=== PATIENT | female | born 1995 | race Caucasian/White ===

== ENCOUNTER 2018-10-02 12:35 | Emergency (ER) | payer BC ==
--- NOTE | 2018-10-02 13:33 | EDM.PDOC ---
ED HPI GENERAL MEDICAL PROBLEM - General Source of Information: Reports: Patient History Limitations: Reports: No Limitations <Luigi Snider - Last Filed: 10/02/18 16:48> - History of Present Illness Onset: Today, Sudden Onset Date: 10/02/18 Onset Time: 12:00 Duration: Minutes: Location: Reports: Other (vaginal bleeding) Severity: Mild Improves with: Reports: None Worsens with: Reports: None Associated Symptoms: Reports: No Other Symptoms. Denies: Fever/Chills, Nausea/ Vomiting, Weakness <Sarah Tsai - Last Filed: 10/02/18 16:58> - General Chief Complaint: ROCK [place]ON Problem Stated Complaint: POSS MISCARRIAGE Time Seen by Provider: 10/02/18 12:54 - History of Present Illness INITIAL COMMENTS - FREE TEXT/NARRATIVE: 23 y/o female presents to ER with cc vaginal bleeding and . She is . She reports about 2 hour [employer] she noticed "stringy bloody drainage from her vagina. She denies any dysuria, back pain, fever or cramping. She reports she has not had any bleeding with her other . Her LMP was 08/26/18. Her OB is Dr. Swanson. (Sarah Tsai) - Related Data Allergies Allergy/AdvReac Type Severity Reaction Status Date / Time azithromycin Allergy Nausea Verified 01/20/16 14:35 codeine Allergy Vomiting Verified 01/20/16 14:35 promethazine HCl Allergy Other Verified 01/20/16 14:35 [From Phenergan] Home Meds: Home Meds . 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 Psychiatric History: Reports: Depression Other Psychiatric History: port depression after having daughter. - Past Surgical History HEENT Surgical History: Reports: Tonsillectomy GI Surgical History: Reports: Cholecystectomy <Luigi Snider - Last Filed: 10/02/18 16:48> Social & Family History - Family History Family Medical History: Noncontributory Respiratory: Reports: Asthma Other Respiratory Family Hisory: mom has asthma. Musculoskeletal: Reports: Arthritis Other Musculoskeletal Family History: grandmother has arthritis Psychiatric: Reports: Anxiety, Bipolar, Depression Other Psychiatric Family History: mother and father Endocrine/Metabolic: Reports: Diabetes, type II Other Endocrine/Metabolic Family History: mother - Tobacco Use Smoking Status *Q: Never Smoker - Caffeine Use Caffeine Use: Reports: Coffee, Energy Drinks, Soda - Recreational Drug Use Recreational Drug Use: No - Living Situation & Occupation Living situation: Reports: Single <Luigi Snider - Last Filed: 10/02/18 16:48> ED ROS GENERAL - Review of Systems Review Of Systems: See Below Constitutional: Denies: Fever, Chills HEENT: Reports: No Symptoms Respiratory: Reports: No Symptoms, Cough Endocrine: Reports: No Symptoms GI/Abdominal: Reports: No Symptoms : Reports: Other (vaginal bleeding and ). Denies: Dysuria, Flank Pain , Pain Musculoskeletal: Reports: No Symptoms Skin: Reports: No Symptoms Neurological: Reports: No Symptoms Psychiatric: Reports: No Symptoms Hematologic/Lymphatic: Reports: No Symptoms Immunologic: Reports: No Symptoms <Sarah Tsai - Last Filed: 10/02/18 16:58> ED EXAM - Physical Exam Exam: See Below Exam Limited By: No Limitations General Appearance: Alert, WD/WN, No Apparent Distress Respiratory/Chest: No Respiratory Distress, Lungs Clear, Normal Breath Sounds, No Accessory Muscle Use, Chest Non-Tender Cardiovascular: Normal Peripheral Pulses, Regular Rate, Rhythm, No Edema, No Gallop, No JVD, No Murmur, No Rub GI/Abdominal Exam: Normal Bowel Sounds, Soft, Non-Tender, No Organomegaly, No Distention, No Abnormal Bruit, No Mass, Pelvis Stable Back Exam: Normal Inspection, Full Range of Motion Extremities: Normal Inspection, Normal Range of Motion, Non-Tender, No Pedal Edema, Normal Capillary Refill Neurological: Alert, Oriented, Normal Cognition, Normal Gait, Normal Reflexes, No Motor/Sensory Deficits Psychiatric: Normal Affect, Normal Mood Skin Exam: Warm, Dry, Intact, Normal Color, No Rash Lymphatic: No Adenopathy <Sarah Tsai - Last Filed: 10/02/18 16:58> Course <Luigi Snider - Last Filed: 10/02/18 16:48> <Sarah Tsai - Last Filed: 10/02/18 16:58> - Vital Signs Last Recorded V/S: Last Vital Signs Temp 97.6 F 10/02/18 13:00 Pulse 81 10/02/18 13:00 Resp 20 10/02/18 13:00 BP 112/62 10/02/18 13:00 Pulse Ox 100 10/02/18 13:00 - Orders/Labs/Meds Labs: Laboratory Tests 10/02/18 10/02/18 10/02/18 Range/Units 13:40 13:40 13:40 WBC 7.64 (3.98-10.04) K/mm3 RBC 4.31 (3.98-5.22) M/mm3 Hgb 13.6 (11.2-15.7) gm/L Hct 40.7 (34.1-44.9) % MCV 94.4 (79.4-94.8) fl MCH 31.6 (25.6-32.2) pg MCHC 33.4 (32.2-35.5) g/dl RDW Std Deviation 47.0 H (36.4-46.3) fL Plt Count 234 (182-369) K/mm3 MPV 11.2 (9.4-12.3) fl Neut % (Auto) 62.8 (34.0-71.1) % Lymph % (Auto) 28.9 (19.3-51.7) % Major % (Auto) 6.3 (4.7-12.5) % Eos % (Auto) 1.6 (0.7-5.8) Baso % (Auto) 0.3 (0.1-1.2) % Neut # (Auto) 4.80 (1.56-6.13) K/mm3 Lymph # (Auto) 2.21 (1.18-3.74) K/mm3 Major # (Auto) 0.48 H (0.24-0.36) K/mm3 Eos # (Auto) 0.12 (0.04-0.36) K/mm3 Baso # (Auto) 0.02 (0.01-0.08) K/mm3 Sodium 140 (136-145) mEq/L Potassium 4.0 (3.5-5.1) mEq/L Chloride 106 (98-107) mEq/L Carbon Dioxide 28 (21-32) mEq/L Anion Gap 10.0 (5-15) BUN 5 L (7-18) mg/dL Creatinine 0.7 (0.55-1.02) mg/dL Est Cr Clr Drug Dosing 101.63 mL/min Estimated GFR (MDRD) > 60 (>60) mL/min BUN/Creatinine Ratio 7.1 L (14-18) Glucose 86 (74-106) mg/dL Calcium 9.4 (8.5-10.1) mg/dL Total Bilirubin 1.1 H (0.2-1.0) mg/dL AST 17 (15-37) U/L ALT 19 (14-59) U/L Alkaline Phosphatase 72 (46-116) U/L Total Protein 7.4 (6.4-8.2) g/dl Albumin 4.3 (3.4-5.0) g/dl Globulin 3.1 gm/dL Albumin/Globulin Ratio 1.4 (1-2) HCG, Qual Positive H (NEGATIVE) HCG, Quant mIU/mL Blood Type 10/02/18 10/02/18 Range/Units 13:40 13:40 WBC (3.98-10.04) K/mm3 RBC (3.98-5.22) M/mm3 Hgb (11.2-15.7) gm/L Hct (34.1-44.9) % MCV (79.4-94.8) fl MCH (25.6-32.2) pg MCHC (32.2-35.5) g/dl RDW Std Deviation (36.4-46.3) fL Plt Count (182-369) K/mm3 MPV (9.4-12.3) fl Neut % (Auto) (34.0-71.1) % Lymph % (Auto) (19.3-51.7) % Major % (Auto) (4.7-12.5) % Eos % (Auto) (0.7-5.8) Baso % (Auto) (0.1-1.2) % Neut # (Auto) (1.56-6.13) K/mm3 Lymph # (Auto) (1.18-3.74) K/mm3 Major # (Auto) (0.24-0.36) K/mm3 Eos # (Auto) (0.04-0.36) K/mm3 Baso # (Auto) (0.01-0.08) K/mm3 Sodium (136-145) mEq/L Potassium (3.5-5.1) mEq/L Chloride (98-107) mEq/L Carbon Dioxide (21-32) mEq/L Anion Gap (5-15) BUN (7-18) mg/dL Creatinine (0.55-1.02) mg/dL Est Cr Clr Drug Dosing mL/min Estimated GFR (MDRD) (>60) mL/min BUN/Creatinine Ratio (14-18) Glucose (74-106) mg/dL Calcium (8.5-10.1) mg/dL Total Bilirubin (0.2-1.0) mg/dL AST (15-37) U/L ALT (14-59) U/L Alkaline Phosphatase (46-116) U/L Total Protein (6.4-8.2) g/dl Albumin (3.4-5.0) g/dl Globulin gm/dL Albumin/Globulin Ratio (1-2) HCG, Qual (NEGATIVE) HCG, Quant 6.0 mIU/mL Blood Type O POSITIVE - Radiology Interpretation Free Text/Narrative:: 23-year-old female presents the ED with suspect last trimester. Reported to be August 26. She started noted some bright red bleeding per vagina today without much cramping. Case discussed with nurse practitioner Sarah Tsai. Patient will have qualitative and quantitative beta-hCGs. Type and screen carried out as well as CBC and CMP. Plan will be to have a transvaginal ultrasound carried out to check for viability. (Luigi Snider) - Re-Assessments/Exams Free Text/Narrative Re-Assessment/Exam: 10/02/18 15:07 Labs reveal a normal white count at 7.64 with auto differential of 62% neutrophils. Hemoglobin is 13.6 with hematocrit of 40.7. Platelet count is 234,000. Sodium 140 with potassium 4.0. Cord 106 with a bicarbonate of 28. And a gap is 10.0. B1 is 5 with a creatinine of 0.7. GFR is greater than 60. Glucose is 86. Calcium 9.4. Liver function normal. Beta hCG is positive. Apparently there is a delay in getting ultrasound performed due to lack of floor technician. Not quite sure how long we are going to wait for this procedure be carried out. 10/02/18 16:34 The beta-hCG is positive but the quantitative beta-hCG is only 6. Review of the ultrasound it shows nothing in the uterus. No evidence of an intrauterine gestational sac is identified. Or this represents a blighted ovum. Patient advised of the findings. She is saddened by the findings as she was hoping to go onto a third . She is 2 para 3. Blood type is O+. Advised that she will go through a bit of a heavier period than normal. To return to hospital care she soaks a pad for more than 2 consecutive hours. May use Motrin 600 mg every 6 hours needed for relief of cramps or heavy flow. Up with Dr. Swanson if any further problems occur. (Luigi Snider) Departure - Departure Time of Disposition: 16:43 Condition: Fair - Discharge Information *PRESCRIPTION DRUG MONITORING PROGRAM REVIEWED*: Not Applicable *COPY OF PRESCRIPTION DRUG MONITORING REPORT IN PATIENT LEONEL: Not Applicable <Luigi Snider - Last Filed: 10/02/18 16:48> <Sarah Tsai - Last Filed: 10/02/18 16:58> - Departure Disposition: Home, Self-Care 01 Clinical Impression: Inevitable complete miscarriage without complication - Discharge Information Instructions: Miscarriage, [id number] Referrals: Navdeep Swanson MD [Primary Care Provider] - Forms: ED Department Discharge Additional Instructions: Evaluation in the emergency room today in regards to spotting per vagina this morning since she will awaken. Placing tests have been positive. Last menstrual period was felt to be around 26 August making you around 8 weeks . E test done in the emergency room is still positive. However the amount of hormone in your system is only 6. Normal is one or less as he should be in the 100s of thousands if you or 8 weeks . Ultrasound completed shows no sign of a inside the uterus. Very little tissue inside the uterus as well. This means mother nature turned off the development of this likely due to a congenital abnormality that was not compatible with life. Therefore you will go through a bit of a heavier period than normal over the next 4-5 days. He would need to return to the ED if you are flowing enough to soak a pad for 2 consecutive hours. It is okay to take Motrin 600 mg every 6 hours if needed for relief of abdominal cramping pain and/or to reduce the amount of flow. Suggest continue her vitamins daily for the next couple of months and have to regular periods before you attempt a future . 6 as a future is much higher you how couple of periods after a miscarriage. Follow-up with Dr. Swanson if any further problems occur. Of note her blood type is O+.
--- NOTE | 2018-10-02 16:17 | US ---
First trimester obstetrical ultrasound: Multiple real-time images were obtained transvaginally. Uterus is anteverted. No intrauterine gestational sac is seen. No myometrial abnormality is identified. Ovaries appear within normal limits. No adnexal abnormalities are seen. No free fluid is seen. Impression: 1. Unremarkable pelvic ultrasound. No intrauterine gestational sac or adnexal abnormality is seen. Please correlate if patient has positive test. Note: If patient has positive test a normal pelvic ultrasound has a differential of too early to visualize, miscarriage as well as nonvisualized ectopic (less likely etiology)
[2018-10-02 17:26] VITALS: BP 106/70
== END 2018-10-02 17:10 | disposition home or self-care (01) ==
LOC: JD.ED 12:35
DX: O03.9 Complete or unspecified spontaneous abortion without complication (principal); Z88.5 Allergy status to narcotic agent; Z88.1 Allergy status to other antibiotic agents
CPT/HCPCS: 36415; 76817; 76817-26; 80053; 84702; 84703; 85025; 86900; 86901; 99283; 99284-25

== ENCOUNTER 2019-08-07 18:45 | Emergency (ER) | payer BC ==
[2019-08-07 18:52] VITALS: BP 127/61; PULSE 144
[2019-08-07] MEDS ORDERED: LORazepam 2 MG/ML SDV ONE (19:13)
[2019-08-07] MEDS ORDERED: Ondansetron 4 MG/2 ML SDV IVPUSH ONE (19:21)
--- NOTE | 2019-08-07 19:28 | EDM.PDOC ---
ED HPI GENERAL MEDICAL PROBLEM - General Chief Complaint: Respiratory Problem Stated Complaint: [facility] Time Seen by Provider: 08/07/19 19:00 Source of Information: Reports: Patient, Family History Limitations: Reports: No Limitations - History of Present Illness INITIAL COMMENTS - FREE TEXT/NARRATIVE: This is a 24-year-old female. 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 She started having some carpal spasms in her hands and they called the ambulance and when the ambulance arrived they thought she was having allergic reaction so they started giving her epinephrine. They took her to the [facility] ER and apparently the provider there felt like she was having allergic reaction as well so they gave her 5-6 epinephrines according to the patient. She apparently calmed down enough that she was released and she was on her way down here for her daughter's birthday when she started having carpal spasms began rapid respiration complaining of being short of breath and lightheaded and she was brought to the ER. When I walk into the room she is extremely anxious breathing 24-30 times a minute having obvious carpal spasms more so on the right than the left. She is complaining of feeling numb in her legs and her private area. Just observing her I do not see any evidence of an allergic reaction. She has no urticaria noted on her neck or face or arms or her legs. Her blood pressure is 127/61. Her pulse is 144. She did state that she took 75 mg of Benadryl and did another epi shot before coming to this ER. I explained to her that the reason she is numb and having these spasms is because she is breathing so rapidly exchanging the pH of her blood and her nerves or malfunctioning and muscles are malfunctioning. I explained to her that I do not believe this is no allergic reaction but related to her breathing rapidly and being anxious. - Related Data Allergies Allergy/AdvReac Type Severity Reaction Status Date / Time azithromycin Allergy Nausea Verified 08/07/19 18:52 codeine Allergy Vomiting Verified 08/07/19 18:52 promethazine HCl Allergy Other Verified 08/07/19 18:52 [From Phenergan] Home Meds: Home Meds . 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 Psychiatric History: Reports: Depression Other Psychiatric History: port depression after having daughter. - Past Surgical History HEENT Surgical History: Reports: Tonsillectomy GI Surgical History: Reports: Cholecystectomy Social & Family History - Family History Family Medical History: Noncontributory Respiratory: Reports: Asthma Other Respiratory Family Hisory: mom has asthma. Musculoskeletal: Reports: Arthritis Other Musculoskeletal Family History: grandmother has arthritis Psychiatric: Reports: Anxiety, Bipolar, Depression Other Psychiatric Family History: mother and father Endocrine/Metabolic: Reports: Diabetes, type II Other Endocrine/Metabolic Family History: mother - Tobacco Use Smoking Status *Q: Never Smoker - Caffeine Use Caffeine Use: Reports: Coffee, Energy Drinks, Soda - Recreational Drug Use Recreational Drug Use: No - Living Situation & Occupation Living situation: Reports: Single ED ROS GENERAL - Review of Systems Review Of Systems: See Below Constitutional: Denies: Fever, Chills HEENT: Denies: Ear Pain, Rhinitis, Sinus Problem, Throat Swelling Respiratory: Reports: Shortness of Breath. Denies: Wheezing, Cough Cardiovascular: Denies: Chest Pain Endocrine: Reports: No Symptoms GI/Abdominal: Reports: Nausea. Denies: Abdominal Pain, Constipation, Diarrhea, Vomiting : Reports: No Symptoms Musculoskeletal: Reports: Other (Having carpal spasms) Skin: Denies: Mottled, Rash, Erythema Neurological: Reports: Numbness, Tingling. Denies: Trouble Speaking Psychiatric: Denies: Anxiety Hematologic/Lymphatic: Reports: No Symptoms ED EXAM, GENERAL - Physical Exam Exam: See Below Exam Limited By: No Limitations General Appearance: Alert, WD/WN, Anxious, Mild Distress Eye Exam: Bilateral Eye: Normal Inspection Ears: Normal External Exam, Normal Canal, Normal TMs Nose: Normal Inspection Throat/Mouth: Normal Inspection, Normal Lips, Normal Voice, No Airway Compromise Head: Normocephalic Neck: Supple, Other (There is no rash on her neck or her face noted) Respiratory/Chest: No Respiratory Distress, Lungs Clear, Normal Breath Sounds, Other (She is breathing very rapidly however rate 24-30 per minute). No: Crackles, Rales, Rhonchi, Wheezing Cardiovascular: Regular Rate, Rhythm, No Murmur, Tachycardia GI/Abdominal: Soft, Non-Tender (Female) Exam: Other (She complains of numbness in her female area) Back Exam: Normal Inspection, Full Range of Motion Extremities: Other (She is having obvious carpal spasms of the right upper extremity and slightly in the left upper extremity, she complains of numbness in her legs though she'll move her legs without difficulty) Neurological: Alert, Oriented Psychiatric: Anxious, Tearful Skin Exam: Warm, Dry Course - Vital Signs Last Recorded V/S: Last Vital Signs Temp 99.1 F 08/07/19 18:49 Pulse 144 H 08/07/19 18:49 Resp 24 H 08/07/19 18:49 BP 127/61 08/07/19 18:49 Pulse Ox - Orders/Labs/Meds Orders: Active Orders 24 hr Category Date Time Status LORazepam [Ativan] Med 08/07/19 22:44 Once 1 mg PO ONETIME ONE Sodium Chloride 0.9% [Normal Saline] 1,000 ml Med 08/07/19 19:45 Active IV ASDIRECTED Sodium Chloride 0.9% [Normal Saline] 1,000 ml Med 08/07/19 21:15 Active IV ASDIRECTED methylPREDNISolone Sod Succ [Solu-MEDROL] Med 08/07/19 22:44 Once 125 mg IVPUSH ONETIME ONE Medication Orders Sodium Chloride (Normal Saline) 1,000 mls @ 1,000 mls/hr IV ASDIRECTED RICCO Last Admin: 08/07/19 19:59 Dose: 1,000 mls/hr Sodium Chloride (Normal Saline) 1,000 mls @ 1,000 mls/hr IV ASDIRECTED RICCO Last Admin: 08/07/19 21:18 Dose: 1,000 mls/hr Labs: Laboratory Tests 08/07/19 08/07/19 08/07/19 Range/Units 20:33 20:33 20:33 WBC 8.60 (3.98-10.04) K/mm3 RBC 3.78 L (3.98-5.22) M/mm3 Hgb 12.0 D (11.2-15.7) gm/dl Hct 36.0 (34.1-44.9) % MCV 95.2 H (79.4-94.8) fl MCH 31.7 (25.6-32.2) pg MCHC 33.3 (32.2-35.5) g/dl RDW Std Deviation 44.1 (36.4-46.3) fL Plt Count 190 (182-369) K/mm3 MPV 11.2 (9.4-12.3) fl Neut % (Auto) 95.5 H (34.0-71.1) % Lymph % (Auto) 4.0 L (19.3-51.7) % Green % (Auto) 0.3 L (4.7-12.5) % Eos % (Auto) 0 L (0.7-5.8) Baso % (Auto) 0.0 L (0.1-1.2) % Neut # (Auto) 8.21 H (1.56-6.13) K/mm3 Lymph # (Auto) 0.34 L (1.18-3.74) K/mm3 Green # (Auto) 0.03 L (0.24-0.36) K/mm3 Eos # (Auto) 0.00 L (0.04-0.36) K/mm3 Baso # (Auto) 0.00 L (0.01-0.08) K/mm3 Manual Slide Review Abnormal smear Sodium 141 (136-145) mEq/L Potassium 3.8 (3.5-5.1) mEq/L Chloride 107 (98-107) mEq/L Carbon Dioxide 19 L (21-32) mEq/L Anion Gap 18.8 H (5-15) BUN 8 (7-18) mg/dL Creatinine 0.9 (0.55-1.02) mg/dL Est Cr Clr Drug Dosing TNP Estimated GFR (MDRD) > 60 (>60) mL/min BUN/Creatinine Ratio 8.9 L (14-18) Glucose 162 H (74-106) mg/dL Calcium 8.4 L (8.5-10.1) mg/dL Total Bilirubin 0.4 (0.2-1.0) mg/dL AST 19 (15-37) U/L ALT 21 (14-59) U/L Alkaline Phosphatase 58 (46-116) U/L Total Protein 6.7 (6.4-8.2) g/dl Albumin 3.9 (3.4-5.0) g/dl Globulin 2.8 gm/dL Albumin/Globulin Ratio 1.4 (1-2) HCG, Qual Negative (NEGATIVE) Meds: Medications Generic Name Dose Route Start Last Admin Trade Name Freq PRN Reason Stop Dose Admin Sodium Chloride 1,000 mls @ 1,000 mls/hr 08/07/19 19:45 08/07/19 19:59 Normal Saline IV 1,000 mls/hr ASDIRECTED RICCO Administration Sodium Chloride 1,000 mls @ 1,000 mls/hr 08/07/19 21:15 08/07/19 21:18 Normal Saline IV 1,000 mls/hr ASDIRECTED RICCO Administration Discontinued Medications Generic Name Dose Route Start Last Admin Trade Name Freq PRN Reason Stop Dose Admin Lorazepam Confirm 08/07/19 19:13 08/07/19 19:59 Ativan Administered 08/07/19 19:14 1 mg Dose Administration 2 mg .ROUTE .STK-MED ONE Lorazepam 0.5 mg 08/07/19 19:38 08/07/19 20:01 Ativan IVPUSH 08/07/19 19:39 0.5 mg ONETIME ONE Administration Lorazepam 0.5 mg 08/07/19 20:25 08/07/19 20:33 Ativan IVPUSH 08/07/19 20:26 0.5 mg ONETIME ONE Administration Methylprednisolone Sodium Succinate 125 mg 08/07/19 22:44 Solu-Medrol IVPUSH 08/07/19 22:45 ONETIME ONE Ondansetron HCl 4 mg 08/07/19 19:21 08/07/19 19:54 Zofran IVPUSH 08/07/19 19:22 Not Given ONETIME ONE - Re-Assessments/Exams Free Text/Narrative Re-Assessment/Exam: 08/07/19 22:45 The patient is feeling good now. All the numbness and tingling and the carpal spasms have completely resolved. She is wanting to go home. I explained to her I do not know if she originally had an allergic reaction with that lump in her throat however the multiple treatments with the epi is what caused her symptoms when she arrived to our ER. I am going to give her some Solu-Medrol IV in case she is having allergic reaction. I counseled her to get rid of all scented soaps candles perfumes until she can figure out what is causing her initial symptoms. She is going to see an sow farm barn technician this coming week. I am going to give her a 1 mg Ativan so she starts to breathe rapidly or get numbness and tingling in her arm she is to take it. If she has throat constriction then she is to return to the ER. The patient and the understand. Departure - Departure Time of Disposition: 22:46 Disposition: Home, Self-Care 01 Condition: Good Clinical Impression: Tachycardia, Hyperventilation, Numbness and tingling of both lower extremities , Numbness and tingling in both hands, Muscle spasm Adverse drug reaction Qualifiers: Encounter type: initial encounter Qualified Code(s): T50.905A - Adverse effect of unspecified drugs, medicaments and biological substances, initial encounter - Discharge Information *PRESCRIPTION DRUG MONITORING PROGRAM REVIEWED*: Not Applicable *COPY OF PRESCRIPTION DRUG MONITORING REPORT IN PATIENT LEONEL: Not Applicable Instructions: Hyperventilation Forms: ED Department Discharge Additional Instructions: Please remove all scented items from out of your house or use until you can figure out what might be causing an allergic reaction, the symptoms you are experiencing you came to our ER was related to overuse of the epinephrine is in your fast heart rate and your rapid respirations, the numbness and tingling and spasms in your forearms was related to the rapid respirations as it changes the pH of your blood and then the nerves did not function properly, if you start having rapid respiration and tingling take the Ativan, if you feel like your throat is closing up and you need to return to the ER, follow-up with the sow farm barn technician as you are able and also your family doctor this coming week. Sepsis Event Note - Evaluation Sepsis Screening Result: No Definite Risk - Focused Exam Vital Signs: Vital Signs Temp Pulse Resp BP 08/07/19 18:49 99.1 F 144 H 24 H 127/61 Date Exam was Performed: 08/07/19 Time Exam was Performed: 22:45 - My Orders Last 24 Hours: My Active Orders 08/07/19 19:45 Sodium Chloride 0.9% [Normal Saline] 1,000 ml IV ASDIRECTED 08/07/19 21:15 Sodium Chloride 0.9% [Normal Saline] 1,000 ml IV ASDIRECTED 08/07/19 22:44 LORazepam [Ativan] 1 mg PO ONETIME ONE methylPREDNISolone Sod Succ [Solu-MEDROL] 125 mg IVPUSH ONETIME ONE - Assessment/Plan Last 24 Hours: My Active Orders 08/07/19 19:45 Sodium Chloride 0.9% [Normal Saline] 1,000 ml IV ASDIRECTED 08/07/19 21:15 Sodium Chloride 0.9% [Normal Saline] 1,000 ml IV ASDIRECTED 08/07/19 22:44 LORazepam [Ativan] 1 mg PO ONETIME ONE methylPREDNISolone Sod Succ [Solu-MEDROL] 125 mg IVPUSH ONETIME ONE
[2019-08-07] MEDS ORDERED: LORazepam 2 MG/ML SDV IVPUSH ONE ×2 (19:38→20:25)
[2019-08-07] MEDS ORDERED: Sodium Chloride 0.9% 1,000 ML IV SCH ×2 (19:45→21:15)
[2019-08-07] MEDS ORDERED: LORazepam 1 MG Tab PO ONE (22:44)
[2019-08-07] MEDS ORDERED: methylPREDNISolone Sodium Succinate 125 MG/2 ML SDV IVPUSH ONE (22:44)
== END 2019-08-07 23:19 | disposition home or self-care (01) ==
LOC: JD.ED 18:45
DX: R00.0 Tachycardia, unspecified (principal); R06.4 Hyperventilation; R20.0 Anesthesia of skin; M62.838 Other muscle spasm; T50.905A Adverse effect of unspecified drugs, medicaments and biological substances, initial encounter; Z88.1 Allergy status to other antibiotic agents; Z88.5 Allergy status to narcotic agent
CPT/HCPCS: 36415; 80053; 84703; 85025; 96361; 96374; 96376; 99285; A9270; J2060; J2930; J7030; 99284

== ENCOUNTER 2020-06-06 06:55 | Inpatient (IN) | payer BC ==
[2020-06-06] MEDS ORDERED: Acetaminophen 325 MG Tab PO PRN (19:28)
[2020-06-06] MEDS ORDERED: Nalbuphine 10 MG/1 ML Vial IVPUSH PRN (19:28)
[2020-06-06] MEDS ORDERED: Ondansetron 4 MG/2 ML SDV IVPUSH PRN (19:28)
[2020-06-06] MEDS ORDERED: Sodium Chloride 0.9% 10 ML Syringe FLUSH PRN (19:28)
[2020-06-06] MEDS ORDERED: Oxytocin/Lactated Ringers 10 UNIT/1,000 ML BAG IV SCH ×2 (19:30)
[2020-06-06] MEDS: Lactated Ringers 1,000 ML IV SCH (20:14)
--- NOTE | 2020-06-06 20:41 | PCM.LDHP ---
L&D History of Present Illness - General Date of Service: 06/06/20 Admit Problem/Dx: Patient Status Order with Admit Dx/Problem 06/06/20 19:28 Patient Status [ADT] Routine Admission Diagnosis/Problem Admission Diagnosis/Problem 06/06/20 20:28 Winnie is a 25-year-old 5 para 2-0-2-2 white female at 39-6/7 weeks gestational age with an KENDRICK of 06/07/2020 admitted for induction of labor. Source of Information: Patient History Limitations: Reports: No Limitations - History of Present Illness Introduction:: Winnie is a 25-year-old 5 para 2-0-2-2 white female at 39-6/7 weeks gestational age with an KENDRICK of 06/07/2020 admitted for induction of labor. The process and procedure of induction of labor, its risks, benefits, limitations, follow-up and alternatives of care discussed in detail with the patient. She appears to understand and wishes to proceed. 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 Patient had menarche at approximately age 11. Cycles every 30 days. Last menstrual period was certain and regular. She denies any STIs or abnormal Pap smears in the past. Her obstetric history includes the followin. Female born 08/03/2016 at 40-2/7 weeks gestational age after 10 hours of labor7 pounds 5 ouncesNSVDepidural useSt. [facility]. Male infant born 01/14/2018 at 38-6/7 weeks gestational age13 hours of labor9 pounds 0 ouncesNSVDepidural useSt. [facility]. course: Winnie was seen early in the at 6-1/7 weeks gestational age at which time ultrasound confirmed dates as determined by LMP. She was seen on a regular basis throughout the . Weight gain was from 140 to 190 pounds for 50 pound increase. Her vital signs remained stable throughout the course. Fundal height growth was just a bit ahead of schedule, but not excessively so. She had a group B strep screen which was negative. She declined the Tdap. She is okay with epidural but would like to go as long as she can with natural childbirth. She had been on sertraline in early part of the but weaned off after 36 weeks. She plans to breast- feed. Her prequel noninvasive screen was negative for trisomy 21, 18 and 13 and showed a female gender. She is rubella immune. laboratory testing: First visit patient's blood was found to be O+ with a negative antibody screen. Hemoglobin at that time was 13.9 g/dL and platelets were 245,000. She is rubella immune. Urine culture is negative for pathogens. Her hepatitis B surface antigen and HIV assays were both negative. Median gonorrhea tests were both negative. Second trimester labs showed hemoglobin 11.6 g/dL and platelets at 191,000. Her diabetic screening test was 79normal. Hemoglobin recheck on 05/02/2020 was 10.4 g/dL and platelets were 240,000. She is group B strep negative. RPR done on 11/15/2019 was nonreactive. Allergies: 1. Promethazine tablets-reaction unknown 2. Codeine derivatives which cause nausea and vomiting 3. Zithromax Z-VIOLETTA tabs which cause nausea and vomiting Medications: 1. vitamins 1 daily 2. Prilosec 10 mg p.o. daily past medical history: 1. x2 2. History of seizures cervical dysplasia 3. History of depression on medications in high school and after her first . Was on sertraline during first course of this . 4. History of anxiety 5. Infertility with Clomid being used to obtain this Past surgical history: 1. Tonsillectomy 2008 2. Laparoscopic cholecystectomy 2007 3. Charlton and toxic shock syndrome 2006. Family history: Mother is alive and well. Father is alive and well. Both have obesity. 1 brother and 1 sister alive and well. Maternal grandmother is alive with rheumatoid arthritis. Maternal grandfather is alive with history of hypertension. Paternal grandmother is alive but health is unknown. Paternal grandfather is alive and health is unknown. No bleeding, thyroid, blood clotting, asthma, anesthesia, related problems noted in the family. Social history: Patient is . is Peyton Mattson. They live in [place], [place]. 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 She does not use any significant amounts of alcohol, drugs or tobacco. She is a high school graduate. Review of systems: In general patient has no complaints. Has been active. She has had some irregular contractions. Skin: Negative Lungs: No infectious symptoms or shortness of breath Cardiovascular: No chest pain or exercise intolerance Breasts: No lumps, changes in size, pain, dimpling, discharge or axillary or altman praclavicular concerns. GI: Negative : Body habitus changes associated with . Musculoskeletal: Negative Neurological: Negative Physical exam: In general the patient is well-developed, well-nourished, pleasant female of stated age in no acute distress. Skin is warm dry without lesions. HEENT, neck and back within normal limits. Lungs are clear with good breath sounds in all lung mcclure. Cardiovascular exam shows regular and rhythm without murmurs. Breast exam deferred at this time having been done at first annual visit and found to be normal. Abdomen is gravid with last fundal height in clinic at 38 cm. Baby in vertex presentation. Genital per digital exam on last evaluation clinic was 2 cm, 80% effaced, very soft, -3 station, mid to posterior position. This exam is essentially unchanged on evaluation at the time of this admission. Extremities and neurological exam are grossly within normal limits. - Related Data Allergies/Adverse Reactions: Allergies Allergy/AdvReac Type Severity Reaction Status Date / Time azithromycin Allergy Nausea Verified 08/07/19 18:52 codeine Allergy Vomiting Verified 08/07/19 18:52 promethazine HCl Allergy Other Verified 08/07/19 18:52 [From Phenergan] Home Medications: Home Meds . 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 Psychiatric History: Reports: Depression Other Psychiatric History: port depression after having daughter. - Past Surgical History HEENT Surgical History: Reports: Tonsillectomy GI Surgical History: Reports: Cholecystectomy Social & Family History - Family History Family Medical History: No Pertinent Family History Respiratory: Reports: Asthma Other Respiratory Family Hisory: mom has asthma. Musculoskeletal: Reports: Arthritis Other Musculoskeletal Family History: grandmother has arthritis Psychiatric: Reports: Anxiety, Bipolar, Depression Other Psychiatric Family History: mother and father Endocrine/Metabolic: Reports: Diabetes, type II Other Endocrine/Metabolic Family History: mother - Caffeine Use Caffeine Use: Reports: Coffee, Energy Drinks, Soda - Living Situation & Occupation Living situation: Reports: Single H&P Review of Systems - Review of Systems: Review Of Systems: See Below L&D Exam - Exam Exam: See Below - Vital Signs Weight: 87.498 kg - Patient Data Lab Results Last 24 hrs: Laboratory Results - last 24 hr 06/06/20 Range/Units 19:39 WBC 12.71 H (3.98-10.04) K/mm3 RBC 4.21 (3.98-5.22) M/mm3 Hgb 12.7 D (11.2-15.7) gm/dl Hct 39.3 (34.1-44.9) % MCV 93.3 (79.4-94.8) fl MCH 30.2 (25.6-32.2) pg MCHC 32.3 (32.2-35.5) g/dl RDW Std Deviation 56.2 H (36.4-46.3) fL Plt Count 222 (182-369) K/mm3 MPV 10.5 (9.4-12.3) fl Neut % (Auto) 73.7 H (34.0-71.1) % Lymph % (Auto) 19.3 (19.3-51.7) % Charlton % (Auto) 5.6 (4.7-12.5) % Eos % (Auto) 0.6 L (0.7-5.8) Baso % (Auto) 0.2 (0.1-1.2) % Neut # (Auto) 9.37 H (1.56-6.13) K/mm3 Lymph # (Auto) 2.45 (1.18-3.74) K/mm3 Charlton # (Auto) 0.71 H (0.24-0.36) K/mm3 Eos # (Auto) 0.08 (0.04-0.36) K/mm3 Baso # (Auto) 0.02 (0.01-0.08) K/mm3 Result Diagrams: 06/06/20 19:39 Problem List Initiated/Reviewed/Updated: Yes Orders Last 24hrs: Active Orders 24 hr Category Date Time Status Patient Status [ADT] Routine ADT 06/06/20 19:28 Active Activity as Tolerated [RC] PFP Care 06/06/20 19:28 Active Communication Order [RC] ASDIRECTED Care 06/06/20 19:28 Active Heart Tones [RC] ASDIRECTED Care 06/06/20 19:29 Active Non Stress Test [RC] PER UNIT ROUTINE Care 06/06/20 19:28 Active Notify Provider [RC] PFP Care 06/06/20 19:28 Active Notify Provider [RC] PRN Care 06/06/20 19:28 Active Peripheral IV Care [RC] . DIRECTED Care 06/06/20 19:29 Active Vital Signs [RC] PER UNIT ROUTINE Care 06/06/20 19:28 Active Regular Diet [DIET] Diet 06/06/20 Breakfast Active CORONAVIRUS COVID-19 CHAD [MOLEC] Stat Lab 06/06/20 19:50 Received RAPID PLASMA REAGIN,RPR [CHEM] Routine Lab 06/06/20 19:39 Received TYPE AND SCREEN [BBK] Stat Lab 06/06/20 19:39 Received Acetaminophen [TylenoL] Med 06/06/20 19:28 Active 650 mg PO Q4H PRN Calcium Carbonate [Tums] Med 06/06/20 19:28 Active 1,000 mg PO Q2H PRN Lactated Ringers [Ringers, Lactated] 1,000 ml Med 06/06/20 19:30 Active IV ASDIRECTED Nalbuphine [Nubain] Med 06/06/20 19:28 Active 10 mg IVPUSH Q2H PRN Ondansetron [Zofran] Med 06/06/20 19:28 Active 4 mg IVPUSH Q4H PRN Oxytocin/Lactated Ringers [Pitocin in LR 10 Units/1,000 Med 06/06/20 19:30 Active ML] 10 unit in 1,000 ml IV .CONTINUOUS Oxytocin/Lactated Ringers [Pitocin in LR 10 Units/1,000 Med 06/06/20 19:30 Active ML] 10 unit in 1,000 ml IV TITRATE Sodium Chloride 0.9% [Saline Flush] Med 06/06/20 19:28 Active 10 ml FLUSH ASDIRECTED PRN Electronic Heart Tones Ext w TOCO [WOMSER] Oth 06/06/20 19:28 Ordered Routine Electronic Heart Tones Internal [WOMSER] Per Unit Oth 06/06/20 19:28 Ordered Routine Peripheral IV Insertion Adult [OM.PC] Routine Oth 06/06/20 19:28 Ordered Resuscitation Status Routine Resus Stat 06/06/20 19:28 Ordered Medication Orders Acetaminophen (Tylenol) 650 mg PO Q4H PRN PRN Reason: Pain (Mild 1-3) and fever Calcium Carbonate/Glycine (Tums) 1,000 mg PO Q2H PRN PRN Reason: Indigestion Oxytocin/Lactated Ringer's (Pitocin In Lr 10 Units/1,000 Ml) 10 unit in 1,000 mls @ 12 mls/hr IV TITRATE RICCO; Protocol Last Admin: 06/06/20 20:17 Dose: 2 munits/min, 12 mls/hr Documented by: KELLCOL Oxytocin/Lactated Ringer's (Pitocin In Lr 10 Units/1,000 Ml) 10 unit in 1,000 mls @ 500 mls/hr IV .CONTINUOUS RICCO Lactated Ringer's (Ringers, Lactated) 1,000 mls @ 100 mls/hr IV ASDIRECTED RICCO Last Admin: 06/06/20 20:14 Dose: 100 mls/hr Documented by: KELLCOL Nalbuphine HCl (Nubain) 10 mg IVPUSH Q2H PRN PRN Reason: Pain Ondansetron HCl (Zofran) 4 mg IVPUSH Q4H PRN PRN Reason: Nausea/Vomiting Sodium Chloride (Saline Flush) 10 ml FLUSH ASDIRECTED PRN PRN Reason: Keep Vein Open Assessment/Plan Comment:: 1Therese Zhou is a 25-year-old 5 para 2-0-2-2 white female at 39-6/7 weeks gestational age with an KENDRICK of 06/07/2020 admitted for induction of labor. 2. Group B strep screen is negative 3. Risk factors include: Distance from the hospital; history of 9 pound baby with last ; history of depression in high school, after her first in early part of this pregnancyon meds during those times; echogenic focus within the heart on ultrasoundstable on serial evaluations. 4. Prequel noninvasive testingnegative for trisomy 21, 18 and 13. Female gender identified. 5. Patient is desiring epidural for analgesia in labor. 6. Patient declined Tdap and flu immunization during 7. Patient desiring return to sertraline therapy after delivery Plan: 1. Pitocin induction of labor with AROM augmentation when possible 2. Routine labor care 3. Support breast-feeding plan 4. Admission labs to include COVID-19 testing, RPR, CBC with platelet count 5. Inform pediatrics of cardiac echogenic focus on ultrasound imaging. 6. Monitor labor closely for adequate progression. Anticipate possibility of shoulder dystocia or labor abnormality because of previous history. 7. Epidural as needed per patient desire 8. Restart sertraline after delivery per patient desire
[2020-06-06] MEDS ORDERED: Pantoprazole 40 MG Tab.CR PO SCH (21:44)
[2020-06-07] MEDS: Calcium Carbonate 500 MG Tab.Chew PO PRN ×2 (00:12→05:55)
[2020-06-07] MEDS: Lactated Ringers 1,000 ML IV SCH (06:21)
--- NOTE | 2020-06-07 07:18 | PCM.SN.2 ---
- Free Text/Narrative Note: Delivery note: Winnie is a 25-year-old 5 now para 3-0-2-3 white female at the end of 0/7 weeks gestational age with an KENDRICK of 06/07/2020 admitted on the evening of 06/06/2020 for induction of labor. She was started on IV Pitocin. Progressed slowly till about 0330 hrs. on 06/07/2020. At that time baby's head was found to be at a -2 station, well applied to the cervix and the cervix was 3+ centimeters 90% effaced, anterior. AROM was undertaken with resultant clear amniotic fluid. Thereafter the patient's labor intensified. She had 1 dose of Nubain for analgesia. 0644 hrs. I was called for patient's cervical dilation achieving 10 cm. She was feeling very pushy. At 0655 hrs. on 06/07/2020 she delivered a viable, goldstein, female infant with Apgars of 8 and 9, a weight of 2830 grams (8 pounds, 7.1 ounces) and a length of 21 inches. Direct occiput anterior position. Right shoulder delivered without significant problems and the baby delivered without concerns. The baby was placed on mom's abdomen. Nose and mouth were bulb suction the baby was dried and stimulated. The umbilical cord was allowed to pulsate for approximately 2 to 3 minutes clamped x2 and cut by the baby's bottom Father Fern. The umbilical cord had 3 vessels. The cord blood was obtained. The placenta delivered at 0659 hrs. in a Pa presentation, appeared intact and complete and was discarded per patient desire. Patient had a small first-degree perineal laceration is repaired with 3-0 Monocryl. No anesthesia was used. Patient tolerated this well. Estimated blood loss was 200 cc. Patient plans to breast-feed. Condition: Good.
[2020-06-07] MEDS ORDERED: Docusate Sodium 100 MG Cap PO PRN (09:07)
[2020-06-07] MEDS ORDERED: Witch Hazel Medicated Pads 40/Jar TOP PRN (09:07)
[2020-06-07] MEDS ORDERED: Benzocaine/Menthol 20%-0.5% Spray 56 GM Canister TOP PRN (09:07)
[2020-06-07] MEDS ORDERED: Acetaminophen 325 MG Tab PO PRN (09:07)
[2020-06-07] MEDS: Sertraline 50 MG Tab PO SCH (10:36)
[2020-06-07] MEDS: Prenatal Multivitamin with Calcium/Folic Acid/Iron Tab PO SCH (10:44)
[2020-06-07] MEDS: Ibuprofen 600 MG Tab PO PRN ×2 (13:28→17:55)
[2020-06-07] MEDS ORDERED: Pantoprazole 40 MG Tab.CR PO SCH ×2 (21:00)
--- NOTE | 2020-06-08 05:34 | PCM.DCSUM1 ---
Discharge Summary - Hospital Course Free Text/Narrative:: Winnie is a 25-year-old 5 now para 3-0-2-3 white female admitted at 40 0/7 weeks gestational age with an KENDRICK of 06/07/2020 admitted on the evening of 06/06/2020 for induction of labor. She was started on IV Pitocin. Progressed slowly till about 0330 hrs. on 06/07/2020. At that time baby's head was found to be at a -2 station, well applied to the cervix and the cervix was 3+ centimeters 90% effaced, anterior. AROM was undertaken with resultant clear amniotic fluid. Thereafter the patient's labor intensified. She had 1 dose of Nubain for analgesia. At 0644 hrs. I was called as patient had achieved complete cervical dilation. She was feeling very pushy. At 0655 hrs. on 06/07/2020 she delivered a viable, goldstein, female infant with Apgars of 8 and 9, a weight of 2830 grams (8 pounds, 7.1 ounces) and a length of 21 inches. Direct occiput anterior position. Right shoulder delivered without significant problems and the baby delivered without concerns. The baby was placed on mom's abdomen. Nose and mouth were bulb suction the baby was dried and stimulated. The umbilical cord was allowed to pulsate for approximately 2 to 3 minutes clamped x2 and cut by the baby's bottom Father Fern. The umbilical cord had 3 vessels. The cord blood was obtained. The placenta delivered at 0659 hrs. in a Pa presentation, appeared intact and complete and was discarded per patient desire. Patient had a small first-degree perineal laceration is repaired with 3-0 Monocryl. No anesthesia was used. Patient tolerated this well. Estimated blood loss was 200 cc. The patient is breast-feeding without problems. She is voiding well, ambulated without problems and has minimal lochia. She is desiring discharge home. Condition: Good. Diagnosis: Stroke: No - Discharge Data Discharge Date: 06/08/20 Discharge Disposition: Home, Self-Care 01 Condition: Good - Referral to Home Health Primary Care Physician: Navdeep Swanson MD - Patient Instructions Diet: Regular Diet as Tolerated (Nursing diet with additional calories and calcium as directed.) Activity: As Tolerated (No intercourse or tampons until bleeding resolves) Driving: May Drive Today Showering/Bathing: May Shower Showering/Bathing, Other: Winnie may take a bath Notify Provider of: Fever, Increased Pain, Swelling and Redness, Nausea and/or Vomiting - Discharge Plan Home Medications: Home Meds Ferrous Sulfate [Iron] 325 mg PO DAILY 06/06/20 [History] Omeprazole 40 mg PO DAILY 06/06/20 [History] Vits #93/Iron Fum/FA [ Formula Tablet] 1 each PO DAILY 06/06/20 [History] Acetaminophen [Tylenol] 650 mg PO Q4H PRN tablet 06/08/20 [Rx] Docusate Sodium [Colace] 100 mg PO BID PRN cap 06/08/20 [Rx] Ibuprofen [Motrin] 600 mg PO Q4H PRN tablet 06/08/20 [Rx] Sertraline [Zoloft] 50 mg PO DAILY tablet 06/08/20 [Rx] radha pastranaeL [Tucks] 1 pad TOP ASDIRECTED PRN pad 06/08/20 [Rx] Referrals: Navdeep Swanson MD [Primary Care Provider] - (Return to clinicDr. Swanson2 weeks.) - Discharge Summary/Plan Comment DC Time >30 min.: Yes Discharge Summary/Plan Comment: Discharge instructions: 1. Discharge home 2. Diet, activity and follow-up discussed with patient. Recommend nursing diet with increased calories and calcium. 3. Precautions given concern increased pain, bleeding, temperature, signs/symptoms of DVT/PE. 4. Medications per home medication was printed, discussed with and given to the patient. 5. Return to clinic-Dr. Swnason[facility] in 23 weeks. Diagnosis: Term -delivered Condition: Good - Patient Data Vitals - Most Recent: Last Vital Signs Temp 36.6 C 06/07/20 20:59 Pulse 68 06/07/20 20:59 Resp 15 06/07/20 20:59 BP 115/86 06/07/20 20:59 Pulse Ox 98 06/07/20 20:59 Weight - Most Recent: 87.498 kg Med Orders - Current: Current Medications Acetaminophen (Tylenol) 650 mg PO Q4H PRN PRN Reason: mild pain or fever Benzocaine/Menthol (Dermoplast Pain Relief [place]) 0 gm TOP ASDIRECTED PRN PRN Reason: Perineal Comfort Measure Last Admin: 06/07/20 09:59 Dose: 56 gm Documented by: Docusate Sodium (Colace) 100 mg PO BID PRN PRN Reason: Constipation Last Admin: 06/07/20 10:44 Dose: 100 mg Documented by: Ibuprofen (Motrin) 600 mg PO Q4H PRN PRN Reason: Mild pain or fever Last Admin: 06/07/20 17:55 Dose: 600 mg Documented by: Pantoprazole Sodium (Protonix) 40 mg PO BEDTIME RICCO Last Admin: 06/07/20 21:44 Dose: 40 mg Documented by: Heidi Multivit/Ward/Iron/Folic Ac ( Plus Iron) 1 each PO DAILY RICCO Last Admin: 06/07/20 10:44 Dose: 1 each Documented by: Sertraline HCl (Zoloft) 50 mg PO DAILY RICCO Last Admin: 06/07/20 10:36 Dose: Not Given Documented by: Radha Tipton (Alanna) 1 pad TOP ASDIRECTED PRN PRN Reason: Perineal Comfort Measure Last Admin: 06/07/20 09:59 Dose: 1 container Documented by: Discontinued Medications Acetaminophen (Tylenol) 650 mg PO Q4H PRN PRN Reason: Pain (Mild 1-3) and fever Calcium Carbonate/Glycine (Tums) 1,000 mg PO Q2H PRN PRN Reason: Indigestion Last Admin: 06/07/20 05:55 Dose: 1,000 mg Documented by: Oxytocin/Lactated Ringer's (Pitocin In Lr 10 Units/1,000 Ml) 10 unit in 1,000 mls @ 12 mls/hr IV TITRATE RICCO; Protocol Last Titration: 06/07/20 01:50 Dose: 16 munits/min, 96 mls/hr Documented by: Oxytocin/Lactated Ringer's (Pitocin In Lr 10 Units/1,000 Ml) 10 unit in 1,000 mls @ 500 mls/hr IV .CONTINUOUS RICCO Lactated Ringer's (Ringers, Lactated) 1,000 mls @ 100 mls/hr IV ASDIRECTED RICCO Last Admin: 06/07/20 06:21 Dose: 100 mls/hr Documented by: Nalbuphine HCl (Nubain) 10 mg IVPUSH Q2H PRN PRN Reason: Pain Last Admin: 06/07/20 05:35 Dose: 10 mg Documented by: Ondansetron HCl (Zofran) 4 mg IVPUSH Q4H PRN PRN Reason: Nausea/Vomiting Pantoprazole Sodium (Protonix) 40 mg PO BEDTIME RICCO Pantoprazole Sodium (Protonix) 40 mg PO BEDTIME RICCO Last Admin: 06/06/20 21:52 Dose: 40 mg Documented by: Sodium Chloride (Saline Flush) 10 ml FLUSH ASDIRECTED PRN PRN Reason: Keep Vein Open
[2020-06-08] MEDS: Ibuprofen 600 MG Tab PO PRN (08:56)
[2020-06-08] MEDS: Prenatal Multivitamin with Calcium/Folic Acid/Iron Tab PO SCH (08:56)
[2020-06-08] MEDS: Sertraline 50 MG Tab PO SCH (08:57)
[2020-06-08 10:23] VITALS: BP 116/86; PULSE 68
== END 2020-06-08 10:10 | disposition home or self-care (01) | DRG 560 ==
LOC: JD.OB 06:55 → OBSVTOIN 06-07 06:55 → JD.OB 06-07 07:06
PROVIDERS: ADMIT Obstetrics & Gynecology; ATTEND Obstetrics & Gynecology
PROC: 10E0XZZ Delivery of Products of Conception, External Approach (ICD-10-PCS; principal; 2020-06-07)
PROC: 10907ZC Drainage of Amniotic Fluid, Therapeutic from Products of Conception, Via Natural or Artificial Opening (ICD-10-PCS; 2020-06-07)
PROC: 0HQ9XZZ Repair Perineum Skin, External Approach (ICD-10-PCS; 2020-06-07)
PROC: 3E033VJ Introduction of Other Hormone into Peripheral Vein, Percutaneous Approach (ICD-10-PCS; 2020-06-07)
DX: O70.0 First degree perineal laceration during delivery (principal); Z88.1 Allergy status to other antibiotic agents; Z88.5 Allergy status to narcotic agent; Z88.8 Allergy status to other drugs, medicaments and biological substances; Z37.0 Single live birth; Z20.828 Contact with and (suspected) exposure to other viral communicable diseases; Z3A.40 40 weeks gestation of pregnancy
CPT/HCPCS: 36415; 59025; 59409; 85025; 86592; 86850; 86900; 86901; A9270-GY; J2300; J2590; J7120; U0002

== ENCOUNTER 2022-02-07 07:52 | Inpatient (IN) | payer BC ==
[2022-02-07] MEDS ORDERED: Ondansetron 4 MG/2 ML SDV IVPUSH PRN (08:00)
[2022-02-07] MEDS ORDERED: Oxytocin/Lactated Ringers 10 UNIT/1,000 ML BAG IV SCH (08:00)
[2022-02-07] MEDS ORDERED: Sodium Chloride 0.9% 10 ML Syringe FLUSH PRN (08:00)
[2022-02-07] MEDS ORDERED: Nalbuphine HCl 10 MG/ 1ML Amp IVPUSH PRN (08:00)
[2022-02-07] MEDS ORDERED: Lactated Ringers 1,000 ML IV SCH (08:00)
[2022-02-07] MEDS: Oxytocin/Lactated Ringers 10 UNIT/1,000 ML BAG IV SCH ×2 (08:41→18:36)
[2022-02-07] MEDS ORDERED: Docusate Sodium 100 MG Cap PO PRN ×2 (22:33→22:40)
[2022-02-07] MEDS ORDERED: Acetaminophen 325 MG Tab PO PRN ×2 (22:33→22:40)
[2022-02-07] MEDS ORDERED: Ibuprofen 600 MG Tab PO PRN (22:33)
[2022-02-07] MEDS ORDERED: Witch Hazel Medicated Pads 40/Jar TOP PRN ×2 (22:33→22:40)
[2022-02-07] MEDS ORDERED: Benzocaine/Menthol 20%-0.5% Spray 78 GM Cannister TOP PRN ×2 (22:33→22:40)
[2022-02-07] MEDS ORDERED: Lidocaine 1% 10 ML MDV INJECT ONE (22:40)
[2022-02-07] MEDS: Ibuprofen 600 MG Tab PO PRN (22:57)
[2022-02-08] MEDS ORDERED: Sertraline 50 MG Tab PO SCH ×2 (09:00)
[2022-02-08] MEDS: Ibuprofen 600 MG Tab PO PRN ×2 (11:17→20:32)
[2022-02-08 22:59] VITALS: BP 117/58; PULSE 60
== END 2022-02-08 22:23 | disposition home or self-care (01) | DRG 560 ==
LOC: JD.OB 07:52 → OBSVTOIN 21:31 → JD.OB 21:31
PROVIDERS: ADMIT Obstetrics & Gynecology; ATTEND Obstetrics & Gynecology
PROC: 10E0XZZ Delivery of Products of Conception, External Approach (ICD-10-PCS; principal; 2022-02-07)
PROC: 10907ZC Drainage of Amniotic Fluid, Therapeutic from Products of Conception, Via Natural or Artificial Opening (ICD-10-PCS; 2022-02-07)
PROC: 0KQM0ZZ Repair Perineum Muscle, Open Approach (ICD-10-PCS; 2022-02-07)
PROC: 3E033VJ Introduction of Other Hormone into Peripheral Vein, Percutaneous Approach (ICD-10-PCS; 2022-02-07)
DX: O70.1 Second degree perineal laceration during delivery (principal); Z37.0 Single live birth; O76 Abnormality in fetal heart rate and rhythm complicating labor and delivery; Z3A.39 39 weeks gestation of pregnancy; Z88.1 Allergy status to other antibiotic agents; Z88.5 Allergy status to narcotic agent; Z88.8 Allergy status to other drugs, medicaments and biological substances
CPT/HCPCS: 36415; 59025; 59409; 85025; 86592; A9270-GY; J2405; J2590; J7120

== ENCOUNTER 2022-05-11 17:22 | Emergency (ER) | payer BC | END 2022-05-11 19:00 | LOC: JD.ED 17:22 | DX: Z53.21 Procedure and treatment not carried out due to patient leaving prior to being seen by health care provider (principal) ==

== ENCOUNTER 2022-10-31 06:00 | Emergency (ER) | payer BC ==
[2022-10-31] MEDS ORDERED: HYDROmorphone 0.5 MG/0.5 ML Syringe IVPUSH ONE (06:28)
[2022-10-31] MEDS ORDERED: Ondansetron 4 MG/2 ML SDV IVPUSH ONE ×3 (06:28→10:29)
[2022-10-31] MEDS ORDERED: Sodium Chloride 0.9% 1,000 ML IV ONE ×2 (06:29→10:56)
[2022-10-31] MEDS ORDERED: Morphine 2 MG/ML SYRINGE IVPUSH ONE (07:30)
[2022-10-31] MEDS ORDERED: Lactated Ringers 1,000 ML IV ONE (10:51)
[2022-10-31] MEDS ORDERED: cefTRIAXone 2 GM in Sodium Chloride 0.9% 100 ML IV ONE (10:52)
[2022-10-31] MEDS ORDERED: Acetaminophen 325 MG Tab PO ONE (11:48)
[2022-10-31 12:36] VITALS: BP 107/62; PULSE 112
== END 2022-10-31 15:04 | disposition home or self-care (01) ==
LOC: JD.ED 06:00
DX: N12 Tubulo-interstitial nephritis, not specified as acute or chronic (principal); Z88.1 Allergy status to other antibiotic agents; Z88.5 Allergy status to narcotic agent; Z88.8 Allergy status to other drugs, medicaments and biological substances
CPT/HCPCS: 36415; 80053; 81001; 83605; 84703; 85007; 85027; 87040; 87086; 87088; 87186; 96361; 96365; 96375; 96376; 99284; A9270; J0696; J2270; J2405; J3490; J7030